=== PATIENT | male | born 1985 | race Caucasian/White ===

== ENCOUNTER 2016-11-10 01:51 | Observation (INO) | payer OTHER ==
--- NOTE | ~2016-11-10 | DS ---
Discharge Summary [facility] [address] [place]. [address] NAME: PARKER MORATAYA : 89 STATUS : DIS Palak PAT#: [id number] AGE: 31 ADM/REG DATE : 11/10/16 MR#: [id number] REPORT SERV DATE: 11/11/16 DICTATED BY: JR. ROLLE WILLIAM JOHN DATE: 11/10/16 REPORT STATUS : Draft TRANSCRIBED BY: KENIA DATE: 11/10/16 ADMISSION DATE: 11/10/2016 DISCHARGE DATE: 11/10/2016 DISCHARGE DIAGNOSES: Include: 1. Acute encephalopathy with history of polysubstance abuse. 2. Positive marijuana drug screen. OPERATIONS/PROCEDURES AND TREATMENTS: Include: 1. CT of the brain done 11/10/2016, which showed opacification and obstruction in the right maxillary sinus, otherwise normal study. 2. Chest x-ray done 11/10/2016, which showed low lung volumes without acute cardiopulmonary abnormalities. DISCHARGE MEDICATIONS: None. HOSPITAL COURSE: The patient is a 31-year-old white male with a history of polysubstance abuse, presented to the emergency room on 11/10/2016 with altered mental status. The patient was brought to the emergency room by a co-worker. Apparently, he went to the bathroom on a bathroom break at work and did not come back. EMS was dispatched. Apparently, the patient was initially combative. In the emergency room, he was more sedated. Workup in the emergency room included a CT as above. Urine drug screen was positive for marijuana. Benign arterial blood gas. The patient was treated conservatively with IV fluids, telemetry monitoring. EKG showed no arrhythmias or other abnormalities. The patient was observed. He was ambulating normal without difficulty and felt to be stable for discharge and was discharged home on 11/10/2016. For discharge exam and laboratory, please see daily progress note. DISCHARGE DIET: Regular. ACTIVITY: As tolerated. The patient should not drive until seen by his primary care provider. BENTON/KENIA Ariel Rolle Jr, MD / [id number] CC: Ariel Rolle Jr, MD
--- NOTE | ~2016-11-10 | HP ---
History And Physical [place] [id number] [facility] [place]. [address] NAME: PARKER MORATAYA : 89 STATUS : ADM Palak PAT#: [id number] AGE: 31 ADM/REG DATE : 11/10/16 MR#: [id number] REPORT SERV DATE: 11/10/16 DICTATED BY: JASON PORTER DATE: 11/10/16 REPORT STATUS : Draft TRANSCRIBED BY: MODL DATE: 11/10/16 DATE OF ADMISSION: 11/10/2016 CHIEF COMPLAINT: Altered mental status. HISTORY OF PRESENT ILLNESS: This is a 31-year-old gentleman with history of polysubstance abuse, presenting with an altered mental status. Please note that at the time of my encounter with the patient, the patient was severely somnolent and difficult to arouse. The patient was not able to provide any valuable history. The patient was brought in by his co- workers who gave some history but otherwise was not able to provide much information either. Also, they had left by the time of my encounter with the patient. This H and P is formulated from history gathered from ER staff as well as from my physical exam of the patient. The patient apparently has a history of polysubstance abuse. The patient was at work when he left for a bathroom break and never came back. The patient was then apparently found in the bathroom altered. When EMS was called, the patient was apparently combative initially. Upon arriving to the ER, the patient was more somnolent than anything. The patient was given a dose of Narcan which did not do anything. Otherwise, the patient was afebrile and hemodynamically stable, and later when urine drug screen came back, he was only positive for a marijuana. Serum tox was negative, and ABG was also benign. CT of the head was nonacute. Internal Medicine consultation was requested for admission of the patient for further evaluation and care. REVIEW OF SYSTEMS: Review of systems unable to be obtained from the patient. MEDICATIONS: Unable to be obtained from the patient. ALLERGIES: UNKNOWN. PAST MEDICAL HISTORY: Unknown other than his history of polysubstance abuse, usually the choice of drug has been meth in the past apparently. PAST SURGICAL HISTORY: Unknown. FAMILY HISTORY: Unknown. SOCIAL HISTORY: Again, history of polysubstance abuse, mainly meth in the past. PHYSICAL EXAMINATION: VITAL SIGNS: Temperature 97.7, blood pressure 162/93, pulse 69, respiratory rate is 16, and saturating 100% on room air. NEUROLOGIC: The patient is quite somnolent and difficult to arouse. The patient will only wake up briefly with deep sternal rub. The patient otherwise exhibits no focal neurologic deficits. History And Physical [address] [place]. [address] NAME: PARKER MORATAYA : 89 STATUS : ADM Palak PAT#: [id number] AGE: 31 ADM/REG DATE : 11/10/16 MR#: [id number] REPORT SERV DATE: 11/10/16 DICTATED BY: JASON PORTER DATE: 11/10/16 REPORT STATUS : Draft TRANSCRIBED BY: KENIA DATE: 11/10/16 GENERAL: Again, the patient is deeply somnolent. Not in any acute distress. The patient is minimally cooperative secondary to his somnolence. NECK: No JVD. No lymphadenopathy. Normal thyroid. CHEST: No midline sternotomy scar, and no tenderness to palpation. LUNGS: Clear to auscultation bilaterally with normal respiratory effort on room air. CARDIOVASCULAR: Regular rate and rhythm with no murmurs, rubs, or gallops, and PMI is nondisplaced. ABDOMEN: Soft, nontender, with active bowel sounds and no organomegaly. EXTREMITIES: No edema. Normal distal pulses. No calf tenderness. SKIN: Clean, dry, warm, and intact. LABORATORY DATA: Sodium is 141, potassium 3.6, chloride 109, BUN 13, creatinine 0.86, glucose 124, calcium 8.5. LFTs are within normal limits. White blood cell count is 10.9, hemoglobin 16.0, platelets 175, INR is 0.9. Troponin is less than 0.02. Urinalysis was negative. Chest x-ray is personally interpreted and is nonacute. Serum tox was negative. Urine drug screen was positive only for THC. ABG; pH is 7.35, pCO2 of 38, pO2 of 86, and oxygen saturation of 96.4% on room air. CT of the head was nonacute. ASSESSMENT: This is a 31-year-old gentleman with history of polysubstance abuse, presenting with an altered mental status. 1. Acute encephalopathy, likely related to a substance that is unknown at this time. 2. Urine drug screen positive for THC. 3. History of polysubstance abuse. PLAN: My plan is to admit the patient under observation overnight. The patient will be monitored under telemetry. I will give him aggressive IV fluid, resuscitation with monitoring of close in's and out's as well as daily labs. I will for now manage the patient conservatively as it is most likely that the patient developed encephalopathy related to an unknown substance and expected to improve with time. Standard DVT prophylaxis. The patient is assumed to be full code at this time. The patient's PCP is unknown at this time. YSC/ADEBAYOL Jason Porter MD / [id number]
[2016-11-10 01:18] LABS: BASOPHILS 0.1 %; BASOPHILS ABSOLUTE 0.01 10/3/uL (0.0-0.16); EOSINOPHILS 0.6 %; EOSINOPHILS ABSOLUTE 0.07 10/3/uL (0.0-0.53); HEMATOCRIT 46.2 % (40.0-51.0); IMMATURE GRANULOCYTES 0.2 %; IMMATURE GRANULOCYTES ABSOLUTE 0.02 10/3/uL (0.0-0.11); LYMPHOCYTES 11.5 %; LYMPHOCYTES ABSOLUTE 1.25 10/3/uL (0.67-4.30); MEAN CORPUS HGB CONC 34.6 g/dL (32.0-36.0); MEAN CORPUSCULAR HEMOGLOB 31.9 pg (26.0-34.0); MEAN CORPUSCULAR VOLUME 92.2 fL (80-100); MEAN PLATELET VOLUME 11.7 fL (9.2-13.0); MONOCYTES 5.5 %; NEUTROPHILS 82.1 %; NEUTROPHILS ABSOLUTE 8.93 10/3/uL (2.02-8.40); PLATELET COUNT 175 10/3/uL (150-400); RBC DISTRIBUTION WIDTH 13.2 % (12.0-16.0); RED CELL COUNT 5.01 10/6/uL (4.7-6.1); WHITE BLOOD CELLS 10.9 10/3/uL (4.5-10.5)
[2016-11-10 01:19] LABS: ER CBC TAT 0 Hrs 05 MinsNP; MANUAL DIFF NO %
[2016-11-10 01:25] LABS: INTERNATIONAL NORMAL RATI 0.9 UNITS (-); PROTIME (NOT ORD) 12.4 SEC (12.0-14.5)
[2016-11-10 01:30] LABS: PARTIAL THROMBO TIME 21.5 SEC (22.5-37.2)
[2016-11-10 01:37] LABS: ASCORBIC ACID (UR NOT ORDER) NEG (NEG); BILIRUBIN, URINE NEGATIVE (NEG); KETONE, URINE TRACE MG/DL (NEG); LEUKOCYTE ESTERASE(NOT OR NEG (NEG); NITRITE (URINE) NEG (NEG); WBC (NOT ORDERED) (RFLEX) < 1 (0-5)
[2016-11-10 01:38] LABS: ACETAMINOPHEN LEVEL (TYLENOL) < 2.0 MCG/ML (10.0-20.0); ALBUMIN 3.6 G/DL (3.5-5.0); ALKALINE PHOSPHATASE 60 U/L (45-117); BUN (BLOOD UREA NITROGEN) 13 MG/DL (6-23); CALCIUM, SERUM 8.5 MG/DL (8.5-10.4); CHLORIDE, SERUM 109 MMOL/L (96-112); CO2 (CARBON DIOXIDE) 18 MMOL/L (24-34); CREATININE 0.86 MG/DL (0.70-1.30); GFR AFRICAN AMERICAN 136 ML/MIN (>=60); GFR NON AFRICAN AMERICAN 117 ML/MIN (>=60); GLOBULIN 3.6 G/DL (2.5-4.1); GLUCOSE, SERUM 124 MG/DL (60-99); POTASSIUM, SERUM 3.6 MMOL/L (3.5-5.3); SGOT(AST) 28 U/L (5-40); SGPT(ALT) 58 U/L (5-65); SODIUM, SERUM 141 MMOL/L (135-148); TOTAL BILIRUBIN 0.6 MG/DL (0-1.2); TOTAL PROTEIN 7.2 G/DL (6.0-8.5); TROPONIN I <0.02 NG/ML (<0.05)
[2016-11-10 01:39] LABS: ALCOHOL < 10 MG/DL (0); SALICYLATE < 1.7 MG/DL (-)
[2016-11-10 01:57] LABS: AMPHETAMINES (NOT ORD) NEG (NEG); BARBITURATES (NOT ORDERED NEG (NEG); BENZODIAZEPINES (NOT ORD) NEG (NEG); CANNABINOIDS (THC) POS (NEG); COCAINE (NOT ORDERED) NEG (NEG); OPIATES NEG (NEG); PHENCYCLIDINE(PCP) NEG (NEG); TRICYCLICS NEG (NEG)
[2016-11-10] MEDS ORDERED: *UNABLE2 (02:10)
[2016-11-10 06:15] LABS: BASOPHILS 0.1 %; BASOPHILS ABSOLUTE 0.01 10/3/uL (0.0-0.16); EOSINOPHILS 0.1 %; EOSINOPHILS ABSOLUTE 0.01 10/3/uL (0.0-0.53); HEMATOCRIT 44.3 % (40.0-51.0); HEMOGLOBIN 15.3 g/dL (13.6-17.8); IMMATURE GRANULOCYTES 0.1 %; IMMATURE GRANULOCYTES ABSOLUTE 0.01 10/3/uL (0.0-0.11); LYMPHOCYTES 17.1 %; LYMPHOCYTES ABSOLUTE 1.16 10/3/uL (0.67-4.30); MANUAL DIFF NO %; MEAN CORPUS HGB CONC 34.5 g/dL (32.0-36.0); MEAN CORPUSCULAR HEMOGLOB 31.7 pg (26.0-34.0); MEAN CORPUSCULAR VOLUME 91.7 fL (80-100); MEAN PLATELET VOLUME 11.2 fL (9.2-13.0); MONOCYTES 5.9 %; NEUTROPHILS 76.7 %; NEUTROPHILS ABSOLUTE 5.19 10/3/uL (2.02-8.40); PLATELET COUNT 172 10/3/uL (150-400); RBC DISTRIBUTION WIDTH 13.1 % (12.0-16.0); RED CELL COUNT 4.83 10/6/uL (4.7-6.1); WHITE BLOOD CELLS 6.8 10/3/uL (4.5-10.5)
[2016-11-10 06:28] LABS: BUN (BLOOD UREA NITROGEN) 11 MG/DL (6-23); CALCIUM, SERUM 8.5 MG/DL (8.5-10.4); CHLORIDE, SERUM 109 MMOL/L (96-112); CREATININE 0.92 MG/DL (0.70-1.30); GFR AFRICAN AMERICAN 130 ML/MIN (>=60); GFR NON AFRICAN AMERICAN 112 ML/MIN (>=60); POTASSIUM, SERUM 3.8 MMOL/L (3.5-5.3); SODIUM, SERUM 143 MMOL/L (135-148); ULTRASENSITIVE TSH 0.704 MCIU/ML (0.358-3.740)
[2016-11-10 06:32] LABS: CO2 (CARBON DIOXIDE) 23 MMOL/L (24-34); GLUCOSE, SERUM 152 MG/DL (60-99)
[2016-11-10 07:38] LABS: ALLENS TEST Pos; BE (BASE EXCESS) -4.4 MEQ/L (0 +/- 2.5); CARBOXYHEMOGLOBIN 0.9 % (0-3); HCO3 (ACTUAL BICARBONATE) 20.5 MEQ/L (23-27); HEMOBLOGIN CONTENT 16.3 G/DL (14-18); INSTRUMENT SERIAL # 8087; METHEMOGLOBIN 0.3 % (0-3); O2 CONTENT 21.8 VOL% (18-24); PCO2 (CO2 TENSION) 38 MMHG (35-45); PO2 (O2 TENSION) 86 MMHG (79-93); SAMPLE Arterial; pH 7.35 (7.37-7.43)
[2016-11-10] MEDS ORDERED: EXCEDRIN EXTRA1 EACH PO (09:12)
[2016-11-10] MEDS ORDERED: ADVIL PO (09:13)
== END 2016-11-10 12:34 | disposition home or self-care (01) ==
LOC: ER 01:51 → CDU1 02:43
PROVIDERS: Internal Medicine; Nurse Practitioner Acute Care
DX: G93.40 Encephalopathy, unspecified (principal)
CPT/HCPCS: 36600; 70450; 71010; 80048; 80053; 80305; 80307; 81001; 82805; 84443; 84484; 85025; 85610; 85730; 96372; 96374; 99285; G0378